=== PATIENT | female | born 1965 | race Caucasian/White ===

== ENCOUNTER 2020-03-05 06:11 | Day surgery (SDC) | payer OTHER ==
[~2020-03-05] VITALS: Ht 170.2 cm; Wt 122.9 kg
[~2020-03-05 06:11] MED LIST: ADVAIR 250-501 EACH INH; ARMOUR THYROID60 MG PO; HAIR, SKIN & N1 EACH PO; MULTIVITAMINS1 EAC7 PO; OMEPRAZOLE20 M1 PO; VITAMIN A8000 UNIT PO; VITAMIN B125000 MCG PO; VITAMIN C500 M5 PO
--- NOTE | 2020-03-05 08:18 | NUR ---
03/05/20 0818 Sheets,Romi 0813 PT ARRIVED TO PACU ON 3L VIA NC AND VSS. PT WAKES EASILY AND PLAN OFC ARE DISCUSSED. PT ENCOURAGED TO PASS GAS/AIR.
--- NOTE | 2020-03-05 10:17 | NUR ---
PT ALERT, ORIENTED AND SUPPORTED BY HER JUJU. ABLE TO ANSWER ALL QUESTIONS ASKED. PT REQUESTED PRAYER
--- NOTE | 2020-03-05 10:29 | OR ---
[facility] [address], [place] [address] Signed DATE OF OPERATION: 03/05/2020 SURGEON: Claudette Dumont MD PREOPERATIVE DIAGNOSES: 1. Mother with colon cancer, age 53. 2. Sister with colonic polyps in her 40s. 3. Personal history of colonic polyps, age 41 (2006). POSTOPERATIVE DIAGNOSES: 1. A 4 mm polyp at 5 cm. 2. A 3 mm polyps x3 at 22 cm. 3. A 7 mm polyp at 15 cm (snare). 4. Moderate internal and external hemorrhoids. PROCEDURE: Colonoscopy, snare polypectomy and hot biopsy. ESTIMATED BLOOD LOSS: None. INDICATIONS: Laura is a 55-year-old female asked to see me for a followup colonoscopy. We know her mom was diagnosed with colon cancer at age 53 and by age 55 from the colon cancer. She told me her sister is a registered nurse and had colonic polyps removed in her 40s. Laura had a colonoscopy in 2000 at the age of 35. This was negative. Dr. Garland Nicole did a colonoscopy at age 41 in 2006. She remembers polyps were taken out. She has also had hemorrhoid surgery with Dr. Nicole. She then had a followup colonoscopy in [address] Jack Mayorga and this was unremarkable. He did find hemorrhoids at that time. More recently, she has no lower GI complaints. I met with Laura in the office and I gave her a pamphlet on colonoscopy. She understands the nature of the test along with the risks including, but not limited to gas bloating, crampy abdominal pain, bleeding, perforation requiring surgery, and missed diagnosis. We also discussed the need for IV conscious sedation. She had expressed understanding and wished to proceed. DESCRIPTION OF PROCEDURE: Laura was taken into our endoscopy suite and placed in the left lateral decubitus position. She was given IV sedation with 7 mg of Versed and 150 mcg of fentanyl. We did notice that she has obstructive sleep apnea during the procedure. It was a little difficult to get her sedated as deep as we wanted at times. She might benefit from Electronically Signed By: CLAUDETTE DUMONT MD 03/05/20 1029 PATIENT NAME: LAURA KELLER OPERATIVE REPORT DATE OF : 61 REPORT #: [id number] PHYSICIAN: CLAUDETTE DUMONT MD PCP: TAMMY NIEVES REPORT IS CONFIDENTIAL AND NOT TO BE RELEASED WITHOUT AUTHORIZATION [facility] [address], [place] [address] Signed monitored anesthesia care and propofol in the future. A digital rectal exam was performed and she does have moderate circumferential external hemorrhoids. The adult colonoscope was introduced advanced all around to the proximal transverse colon. She has a very long redundant colon. Her prep was quite excellent. Even with additional sedation in rotating Laura into the supine position with abdominal compression, we were never able to get the scope to pass any further. Consequently, she needs a barium enema to complete her study. The scope was slowly withdrawn. The above-mentioned polyps were easily removed with the help of hot biopsy forceps. We did use the snare at 15 cm. That polyp was suctioned through the scope and captured in our trap. The scope had been retroflexed in the rectum. She does have moderate internal hemorrhoids as well. After this, the gas was suctioned out and the colonoscope removed. Laura tolerated the procedure quite well. RECOMMENDATIONS: Laura will need to follow up my office in 7 to 14 days to review her results. She will need a barium enema to evaluate the proximal portion of her colon. Also she might benefit from propofol infusion for future colonoscopies. It might benefit advancement of the scope. Claudette Dumont MD ALB/MODL /[id number] cc: SHIRIN Shaver MD Copies: CLAUDETTE DUMONT MD ~ Electronically Signed By: CLAUDETTE DUMONT MD 03/05/20 1029 PATIENT NAME: LAURA KELLER OPERATIVE REPORT DATE OF : 61 REPORT #: [id number] PHYSICIAN: CLAUDETTE DUMONT MD PCP: TAMMY NIEVES REPORT IS CONFIDENTIAL AND NOT TO BE RELEASED WITHOUT AUTHORIZATION
--- NOTE | 2020-03-07 15:32 | PATH ---
[facility] [address], [place] [address] Signed SPECIMEN(S): A COLON POLYP AT 5 CM SPECIMEN(S): B COLON POLYP AT 22 CM SPECIMEN(S): C COLON POLYP AT 15 CM SPECIMEN SOURCE: A. COLON POLYP AT 5 CM B. COLON POLYP AT 22 CM C. COLON POLYP AT 15 CM CLINICAL HISTORY: Follow up colonoscopy; family history of colon CA/external hemorrhoids; colon and rectal polyps; internal hemorrhoids. MICROSCOPIC DESCRIPTION: Histologic sections of all submitted blocks are examined by light microscopy. These findings, together with the gross examination, support the pathologic diagnosis. FINAL PATHOLOGIC DIAGNOSIS: A. Colon polyp at 5 cm, biopsy: - Polypoid colonic mucosa with focal slight hyperplastic features. B. Colon polyp at 22 cm, biopsy: - Polypoid colonic mucosa with slight hyperplastic features (three fragments). C. Colon polyp at 15 cm, biopsy: - Tubular adenoma (multiple fragments). JVR:cml:[id number] GROSS DESCRIPTION: Three specimens are received in three containers, labeled "Laura Velasquez." A. The specimen, labeled "Laura Velasquez, #1," and designated on the requisition "colon polyp at 5 cm," is received in formalin and consists of one garcía soft tissue fragment that measures 0.5 cm in greatest dimension. The specimen is entirely submitted in cassette (A1). B. The specimen, labeled "Laura Velasquez, polyps x3 at 22 cm," is received in formalin and consists of three garcía soft tissue fragments that measure 0.2 to 0.4 cm in greatest dimension. The specimen is entirely submitted in cassette (B1). C. The specimen, labeled "Laura Velasquez, #3," and designated on the requisition "polyp at 15 cm," is received in formalin and consists of four garcía soft tissue fragments that measure 0.1 to 0.8 cm in greatest dimension. The largest tissue fragment is inked and trisected. The specimen is entirely submitted in cassette (C1). PATIENT NAME: LAURA VELASQUEZ PATHOLOGY DATE OF : 61 REPORT #: [id number] PHYSICIAN: BG PELAYO PCP: TAMMY NIEVES REPORT IS CONFIDENTIAL AND NOT TO BE RELEASED WITHOUT AUTHORIZATION [facility] [address] [place] [id number] Signed FB (under the direct supervision of a pathologist) The Gross Description was prepared using a voice recognition system. The report was reviewed for accuracy; however, sound-alike word errors, addition and/or deletions may occur. If there is any question about this report, please contact Client Services. PERFORMING LABORATORY: The technical component was performed by [facility], [address] [place] [id number] (Mathematician Research: Lesa Gray MD; CLIA# [id number]). [facility], [address] [place] [id number] ([employer]: Gopi Gastelum M.D.). Diagnostician: Gopi Gastelum MD Pathologist Electronically Signed 03/07/2020 Copies: ~ PATIENT NAME: LAURA VELASQUEZ Krzysztof PATHOLOGY DATE OF : 61 REPORT #: [id number] PHYSICIAN: BG PATHOLOGY PCP: TAMMY NIEVES REPORT IS CONFIDENTIAL AND NOT TO BE RELEASED WITHOUT AUTHORIZATION
== END 2020-03-05 08:45 | disposition home or self-care (01) ==
LOC: EDSEX 06:11 → OPS 06:11 → DS 06:11 → OPS 06:45
PROVIDERS: Colon & Rectal Surgery
PROC: 0D5E8ZZ Destruction of Large Intestine, Via Natural or Artificial Opening Endoscopic (ICD-10-PCS; principal; 2020-03-05 06:45)
DX: Z12.11 Encounter for screening for malignant neoplasm of colon (principal); D12.6 Benign neoplasm of colon, unspecified; K64.4 Residual hemorrhoidal skin tags; J45.909 Unspecified asthma, uncomplicated; K21.9 Gastro-esophageal reflux disease without esophagitis; G47.33 Obstructive sleep apnea (adult) (pediatric); Z86.010 Personal history of colon polyps; Z80.0 Family history of malignant neoplasm of digestive organs; Z79.899 Other long term (current) drug therapy; Z87.891 Personal history of nicotine dependence
CPT/HCPCS: 99153; G0500; J2250; J3010